=== PATIENT | female | born 2000 | race Hispanic/Latino ===

== ENCOUNTER 2023-12-26 09:56 | Inpatient (IN) | payer MEDICAID ==
[2023-12-25 11:21] LABS: Hematocrit 34.9 % (34.9-44.5); Hemoglobin 11.5 g/dL (12.0-15.5); Platelet Count 207 10x3/uL (150-450)
[2023-12-25 12:00] LABS: HBsAg Index 0.21 S/CO (0-0.99); Hep B Surf Ag Non-Reactive S/CO (NonReactive)
[2023-12-25 12:02] LABS: Syphilis Antibody Nonreactive (Nonreactive); Syphilis Antibody Index 0.06 S/CO (<1.00 Non-Reactive)
[2023-12-26] MEDS ORDERED: Methylergonovine 0.2 MG/ML VIAL IM PRN ×2 (10:00→14:19)
[2023-12-26] MEDS ORDERED: Lactated Ringer's 1,000 ML IV SCH (10:00)
[2023-12-26] MEDS ORDERED: hydrALAZINE 20 MG/ML VIAL SLOW IVP PRN ×3 (10:00→14:19)
[2023-12-26] MEDS ORDERED: Acetaminophen 500 MG TAB PO PRN (10:00)
[2023-12-26] MEDS ORDERED: Promethazine HCl 25 MG/ML VIAL IM PRN ×3 (10:00→14:28)
[2023-12-26] MEDS ORDERED: Tranexamic Acid 1,000 MG/10 ML VIAL IVP PRN (10:00)
[2023-12-26] MEDS ORDERED: Misoprostol 200 MCG TAB PR PRN ×2 (10:00→14:19)
[2023-12-26] MEDS ORDERED: Ondansetron PF 4 MG/2 ML Vial IVP PRN ×4 (10:00→14:28)
[2023-12-26] MEDS ORDERED: Carboprost 250 MCG/ML AMP IM PRN (10:00)
[2023-12-26] MEDS ORDERED: Oxytocin 30 units/NS 500 ML 500 ML IV SCH ×2 (10:00→14:30)
[2023-12-26] MEDS ORDERED: Diphenoxylate HCl/Atropine Tablet PO PRN (10:00)
[2023-12-26 10:46] VITALS: BMI 25.6
[2023-12-26] MEDS ORDERED: Bicitra 30 ML UDCUP PO PRN (12:31)
[2023-12-26] MEDS ORDERED: Famotidine/PF 20 mg/2ml Vial SLOW IVP PRN (12:31)
[2023-12-26] MEDS: Terbutaline Sulfate 1 MG/ML VIAL SC SCH (12:43)
[2023-12-26] MEDS: CEFAZOLIN 2 GM in Sodium Chloride 0.9% 100 ML IVPB SCH (12:43)
[2023-12-26] MEDS ORDERED: Bisacodyl 10 MG SUPP PR PRN (14:18)
[2023-12-26] MEDS ORDERED: HYDROcodone/Acetaminophen 5/325 mg Tablet PO PRN ×2 (14:18)
[2023-12-26] MEDS ORDERED: Lanolin Ointment 7 GM TUBE TOP PRN (14:18)
[2023-12-26] MEDS ORDERED: Simethicone Chewable 80 MG TAB PO PRN (14:18)
[2023-12-26] MEDS ORDERED: diphenhydrAMINE 50 MG/ML VIAL IVP PRN (14:28)
[2023-12-26] MEDS ORDERED: Naloxone HCl 0.4 mg/ml Vial IV PRN (14:28)
[2023-12-26] MEDS ORDERED: Meperidine HCl/PF 25 MG (1 mL) VIAL SLOW IVP PRN (14:28)
[2023-12-26] MEDS ORDERED: Moisturizing Cream (Eucerin) 113 GM JAR TOP PRN (14:28)
[2023-12-26] MEDS ORDERED: fentaNYL 50 mcg/mL 1 mL Vial SLOW IVP PRN (14:28)
[2023-12-26] MEDS ORDERED: Naloxone HCl 0.4 mg/ml Vial IVP PRN ×2 (14:28)
[2023-12-26] MEDS ORDERED: Communication Order-Pharmacy FS SCH (14:30)
[2023-12-26] MEDS: Ketorolac Tromethamine 30 MG (1 mL) VIAL ONE (17:36)
[2023-12-26] MEDS: ePHEDrine Sulfate 50 MG/10 ML VIAL ONE (17:36)
[2023-12-26] MEDS: Ondansetron PF 4 MG/2 ML Vial ONE (17:36)
[2023-12-26] MEDS: Mineral Oil ENEMA FS SCH (17:36)
[2023-12-26] MEDS: Glycopyrrolate 0.2 MG/ML 5 ML SYRINGE ONE (17:36)
[2023-12-26] MEDS: Tranexamic Acid 1,000 MG/10 ML VIAL ONE (17:37)
[2023-12-26] MEDS: Oxytocin 10 UNITS/ML VIAL ONE (17:37)
[2023-12-26] MEDS: Morphine PF 10 MG/10 ML VIAL ONE (17:37)
[2023-12-26] MEDS: Methylergonovine 0.2 MG/ML VIAL ONE (17:37)
[2023-12-26] MEDS: Boostrix 0.5 ML (Tdap) VIAL (>/=7 yrs of age) IM ONE (19:14)
[2023-12-26] MEDS: Ketorolac Tromethamine 30 MG (1 mL) VIAL IVP SCH (19:35)
[2023-12-26] MEDS: Docusate 100 MG CAP PO SCH (19:36)
[2023-12-26] MEDS: Simethicone Chewable 80 MG TAB PO PRN (19:36)
[2023-12-26] MEDS ORDERED: Docusate 100 MG CAP PO SCH (21:00)
[2023-12-26] MEDS ORDERED: Ferrous Sulfate 325 MG TAB PO SCH (21:00)
[2023-12-26] MEDS ORDERED: Ibuprofen 800 MG TAB PO SCH ×2 (22:00)
[2023-12-27] MEDS: Ketorolac Tromethamine 30 MG (1 mL) VIAL IVP PRN (01:17)
[2023-12-27 04:18] LABS: Hematocrit 27.2 % (34.9-44.5); Hemoglobin 8.9 g/dL (12.0-15.5); Mean Corpuscular HGB CONC 32.7 g/dL (32.0-36.0); Mean Corpuscular Hemoglobin 30.2 pg (27.0-33.0); Mean Corpuscular Volume 92.2 fL (81.6-98.3); Mean Platelet Volume 11.9 fL (7.4-10.4); Platelet Count 176 10x3/uL (150-450); RBC Distribution Width 13.8 % (11.5-14.5); Red Blood Cell (RBC) Count 2.95 10x6/uL (3.90-5.03)
[2023-12-27] MEDS: Prenatal Vitamin 1 TAB PO SCH (08:18)
[2023-12-27] MEDS: Ferrous Sulfate 325 MG TAB PO SCH (08:18)
[2023-12-27] MEDS: Acetaminophen 325 MG TAB PO PRN (08:18)
[2023-12-27] MEDS ORDERED: HYDROcodone/Acetaminophen 5/325 mg Tablet PO PRN (09:05)
[2023-12-27] MEDS: HYDROcodone/Acetaminophen 5/325 mg Tablet PO PRN (18:07)
[2023-12-27] MEDS: Ibuprofen 800 MG TAB PO SCH (20:06)
[2023-12-28 11:29] VITALS: BP 107/59; TEMP 98
[2024-01-01] MEDS ORDERED: Ibuprofen 800 MG TAB PO SCH (06:00)
== END 2023-12-28 14:25 | disposition home or self-care (01) | DRG 787 ==
LOC: CSHLD 09:56 → CSHPP 17:00
PROVIDERS: ADMIT Obstetrics & Gynecology; ATTEND Obstetrics & Gynecology
PROC: 10D00Z1 Extraction of Products of Conception, Low, Open Approach (ICD-10-PCS; principal; 2023-12-26)
DX: O32.1XX0 Maternal care for breech presentation, not applicable or unspecified (principal); O98.52 Other viral diseases complicating childbirth; Z37.0 Single live birth; Z3A.39 39 weeks gestation of pregnancy; B00.9 Herpesviral infection, unspecified; D64.9 Anemia, unspecified; O99.02 Anemia complicating childbirth; O34.83 Maternal care for other abnormalities of pelvic organs, third trimester; N83.202 Unspecified ovarian cyst, left side; O62.2 Other uterine inertia
CPT/HCPCS: 36415; 51702; 59412; 85014; 85018; 85027; 85049; 86780; 86850; 86900; 86901; 87340; J1885; J2210; J2274; J2405; J2590; J3105